=== PATIENT | male | born 1950 | race Asian ===

== ENCOUNTER 2024-03-22 08:16 | Day surgery (SDC) | payer OTHER ==
[2024-03-14 15:17] VITALS: BMI 24.5
[2024-03-22] MEDS ORDERED: oxyCODONE HCL 5 MG TABLET PO PRN ×2 (12:11)
[2024-03-22] MEDS ORDERED: ONDANSETRON 4 MG/2 ML VIAL IVPUSH PRN ×2 (12:11→16:51)
[2024-03-22] MEDS ORDERED: BUPIVACAINE HCL/PF 0.5% (5MG/ML) 10 ML VIAL ONE (12:51)
[2024-03-22] MEDS ORDERED: BUPIVACAINE LIPOSOME/PF (EXPAREL) 266 MG/20 ML VIAL ONE (12:51)
[2024-03-22] MEDS ORDERED: ACETAMINOPHEN INJECTION 100 ML IVPB ONE (12:51)
[2024-03-22] MEDS ORDERED: MIDAZOLAM HCL 2 MG/2 ML SINGLE DOSE VIAL ONE ×2 (12:51→14:58)
[2024-03-22] MEDS ORDERED: KETOROLAC TROMETHAMINE 60 MG/2 ML VIAL ONE (14:07)
[2024-03-22] MEDS ORDERED: BUPIVACAINE HCL/PF 2.5 MG/ML - 30 ML VIAL IJ ONE (14:07)
[2024-03-22] MEDS ORDERED: VANCOMYCIN 1,000 MG VIAL (RESTRICTED TO ID ONLY) ONE (14:07)
[2024-03-22] MEDS ORDERED: ceFAZolin SODIUM 1 GM VIAL ONE ×2 (15:06)
[2024-03-22] MEDS ORDERED: TRANEXAMIC ACID 1000 MG/10 ML VIAL ONE ×2 (15:06→16:39)
[2024-03-22] MEDS ORDERED: PROPOFOL 20 ML ONE ×2 (15:13→16:11)
[2024-03-22] MEDS ORDERED: MAG HYDROX/AL HYDROX/SIMETH 30 ML UNIT-DOSE CUP PO PRN (16:51)
[2024-03-22] MEDS ORDERED: MAGNESIUM HYDROX 2400MG/30ML ORAL SUSPENSION 30 ML CUP PO PRN (16:51)
[2024-03-22] MEDS: LACTATED RINGERS SOLUTION 1,000 ML IV SCH (19:36)
[2024-03-22] MEDS: ACETAMINOPHEN 1000 MG/100 ML BAG IVPB SCH (21:27)
[2024-03-22] MEDS: ASPIRIN 81 MG CHEWABLE TABLETS PO SCH (21:28)
[2024-03-22] MEDS: LOSARTAN POTASSIUM 50 MG TABLET PO SCH (21:28)
[2024-03-22] MEDS: FAMOTIDINE 20 MG TABLET PO SCH (21:28)
[2024-03-22] MEDS: METOPROLOL TARTRATE 50 MG TABLET (FP) PO SCH (21:28)
[2024-03-22] MEDS: SENNOSIDES/DOCUSATE COMBO (SENNA PLUS) TABLET (UD) PO SCH (21:29)
[2024-03-22 22:26] VITALS: RESP 18
[2024-03-22] MEDS: CEFAZOLIN SODIUM 2 GM in DEXTROSE 5%-WATER 100 ML IVPB SCH (22:32)
[2024-03-23] MEDS: CEFAZOLIN SODIUM 2 GM in DEXTROSE 5%-WATER 100 ML IVPB SCH ×2 (06:40→06:53)
[2024-03-23] MEDS: CEFAZOLIN SODIUM 2 GM in DEXTROSE 5%-WATER 100 ML IVPB ONE (06:54)
[2024-03-23 07:08] VITALS: PULSE 60
[2024-03-23] MEDS: MULTIVITAMINS (DAILY MVI) TABLET (FP) PO SCH (09:08)
[2024-03-23 10:22] VITALS: TEMP 98.6
[2024-03-23 14:29] VITALS: BP 164/67
== END 2024-03-23 16:19 | disposition home or self-care (01) ==
LOC: FASUSAT 08:16 → FM/S 18:35 → FASUSAT 03-23 16:19
PROVIDERS: ATTEND Internal Medicine
PROC: 8E0Y0CZ Robotic Assisted Procedure of Lower Extremity, Open Approach (ICD-10-PCS; 2024-03-22)
PROC: 0SRC0JA Replacement of Right Knee Joint with Synthetic Substitute, Uncemented, Open Approach (ICD-10-PCS; principal; 2024-03-22 15:26)
DX: M17.11 Unilateral primary osteoarthritis, right knee (principal)
CPT/HCPCS: 20985; 27447; C1776; S2900; 73560-TC-RT-FY; 94760; 97010-GP; 97116-GP; 97162-GP; J0131

== ENCOUNTER 2024-03-27 10:58 | Emergency (ER) | payer OTHER ==
[2024-03-27 11:10] VITALS: BP 167/85; PULSE 84; RESP 18; TEMP 99.9; BMI 24.5
[2024-03-27] MEDS ORDERED: ACETAMINOPHEN INJECTION 100 ML IVPB ONE (11:33)
[2024-03-27 11:48] LABS: HEMATOCRIT 35.8 % (35.4-49); HEMOGLOBIN 11.4 G/dL (11.7-16.9); MCH 29.4 pg (25.7-33.7); MCHC 31.9 g/dl (32.0-35.9); MEAN PLT VOLUME 8.6 fl (7.5-11.1); PLATELET COUNT 227.5 10^3/uL (134-434); RBC 3.89 10^6/uL (4.00-5.60); RDW 13.4 % (11.9-15.9); WHITE BLOOD COUNT 6.3 10^3/uL (4.0-10.8)
[2024-03-27] MEDS: ACETAMINOPHEN 1000 MG/100 ML BAG IVPB ONE (11:52)
[2024-03-27 12:32] LABS: ALBUMIN 3.6 g/dl (3.4-5.0); BILIRUBIN,TOTAL 0.6 mg/dl (0.2-1); CALCIUM 8.2 mg/dl (8.5-10.1); POTASSIUM 4.1 mmol/L (3.5-5.1); TOT PROT 5.9 g/dl (6.4-8.2)
[2024-03-27 12:40] LABS: PLATELET ESTIMATE ADEQUATE
== END 2024-03-27 14:05 | disposition home or self-care (01) ==
LOC: FER 10:58
PROC: 3E033NZ Introduction of Analgesics, Hypnotics, Sedatives into Peripheral Vein, Percutaneous Approach (ICD-10-PCS; principal; 2024-03-27)
DX: U07.1 COVID-19 (principal); R05.9 Cough, unspecified; R50.9 Fever, unspecified; J06.9 Acute upper respiratory infection, unspecified
CPT/HCPCS: 0241U-QW; 36415; 71045-TC-FY; 80053; 85027; 99284-25; J0131